=== PATIENT | male | born 1985 | race Asian ===

== ENCOUNTER → 2018-02-18 | Outpatient (CLI) | payer OTHER | LOC: CAT 08:25 | DX: Z13.6 Encounter for screening for cardiovascular disorders (principal); E78.00 Pure hypercholesterolemia, unspecified ==

== ENCOUNTER → 2018-12-22 | Outpatient (CLI) | payer BC, OTHER ==
[~2018-12-22] MED LIST: EC-NAPROSYN500 M1 PO; HIGH POTENCY42.5 GM TOP; ROBAXIN 750 MG750 MG PO
== END ==
LOC: ULTRA 08:24
DX: K76.0 Fatty (change of) liver, not elsewhere classified (principal); E78.5 Hyperlipidemia, unspecified

== ENCOUNTER 2018-12-23 17:55 | Emergency (ER) | payer BC, OTHER ==
[~2018-12-23] VITALS: Ht 180.3 cm; Wt 98.4 kg
[2018-12-23] MEDS ORDERED: HIGH POTENCY42.5 GM TOP (18:18)
[2018-12-23] MEDS ORDERED: ROBAXIN 750 MG750 MG PO (18:18)
[2018-12-23] MEDS ORDERED: EC-NAPROSYN500 M1 PO (18:18)
[2018-12-23 18:42] VITALS: BP 147/77
== END 2018-12-23 18:43 ==
LOC: ER 17:55
DX: S39.012A Strain of muscle, fascia and tendon of lower back, initial encounter (principal); S16.1XXA Strain of muscle, fascia and tendon at neck level, initial encounter; E78.00 Pure hypercholesterolemia, unspecified; V89.2XXA Person injured in unspecified motor-vehicle accident, traffic, initial encounter; Y92.89 Other specified places as the place of occurrence of the external cause; Y93.89 Activity, other specified; Y99.8 Other external cause status

== ENCOUNTER → 2018-12-31 | Outpatient (CLI) | payer BC, OTHER | LOC: RAD 09:55 | DX: M41.85 Other forms of scoliosis, thoracolumbar region (principal) ==

== ENCOUNTER → 2019-06-07 | Outpatient (CLI) | payer BC, OTHER ==
[~2019-06-07] MED LIST changes: +DORYX MPC120 MG PO; +MECLIZINE HCL25 M1 PO; +NABUMETONE 500500 M1 PO; +ROSUVASTATIN CA10 MG PO; +SKELAXIN 800 M800 M1 PO
== END ==
LOC: MRI 14:51
DX: M47.26 Other spondylosis with radiculopathy, lumbar region (principal); M51.16 Intervertebral disc disorders with radiculopathy, lumbar region; M48.061 Spinal stenosis, lumbar region without neurogenic claudication

== ENCOUNTER 2019-06-13 09:54 | Emergency (ER) | payer BC, OTHER ==
[~2019-06-13] VITALS: Ht 180.3 cm; Wt 97.5 kg
[~2019-06-13 09:54] MED LIST changes: -DORYX MPC120 MG PO; -MECLIZINE HCL25 M1 PO; -NABUMETONE 500500 M1 PO; -ROSUVASTATIN CA10 MG PO; -SKELAXIN 800 M800 M1 PO
[2019-06-13] MEDS ORDERED: NABUMETONE 500500 M1 PO (10:15)
[2019-06-13] MEDS ORDERED: ROSUVASTATIN CA10 MG PO (10:16)
[2019-06-13] MEDS ORDERED: SKELAXIN 800 M800 M1 PO (10:16)
[2019-06-13] MEDS ORDERED: DORYX MPC120 MG PO (10:16)
[2019-06-13] MEDS ORDERED: MECLIZINE HCL25 M1 PO (11:57)
[2019-06-13 12:49] VITALS: BP 118/76
== END 2019-06-13 12:50 | disposition home or self-care (01) ==
LOC: ER 09:54
DX: R42 Dizziness and giddiness (principal); R50.9 Fever, unspecified; R51 Headache; E78.00 Pure hypercholesterolemia, unspecified; Z79.899 Other long term (current) drug therapy; Z79.2 Long term (current) use of antibiotics

== ENCOUNTER → 2019-08-26 | Outpatient (CLI) | payer BC, OTHER ==
[~2019-08-26] VITALS: Ht 177.8 cm; Wt 90.7 kg
[~2019-08-26] MED LIST changes: +DORYX MPC120 MG PO; +MECLIZINE HCL25 M1 PO; +MEDROLDOSEPACK PO; +NABUMETONE 500500 M1 PO; +NAPROSYN500 M1 PO; +NEURONTIN300 MG PO; +ROSUVASTATIN CA10 MG PO; +SKELAXIN 800 M800 M1 PO
[2019-08-26 12:34] VITALS: BP 119/68
--- NOTE | 2019-08-26 12:49 | NUR ---
Pain Clinic Assessment: 1. History of Osteoarthritis: SPINAL History of Rheumatoid Arthritis: Not Applicable 2. Height: 5 ft. 10 in. 177.8 cm. Weight: 200.0 lb. oz. 90.720 kg. Patient's BMI: 28.7 3. Vital Signs: BP: 119/68 Pulse: 74 Resp: 16 Temp: 02 Sat: 100 ECG Mon: 4. Pain Intensity: 8 5. Fall Risk: Dizziness: Y Needs help standing or walking: N Fallen in the last 3 months: N Fall risk comments: 6. Patient on Blood Thinner: 7. History of Hypertension: N 8. Opioid Therapy greater than 6 weeks: N Opiate Contract Signed: 9. Risk Assessment Tool Provided: 10. Functional Assessment Tool: 11. Recreational Drug Use: Never Drug Type: Tobacco Use: Never Smoker Tobacco Type: Amount or Packs/day: How Many Years: Alcohol Use: No Frequency: Quant:
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
== END ==
LOC: PAIN 07:00
DX: M47.816 Spondylosis without myelopathy or radiculopathy, lumbar region (principal); M48.061 Spinal stenosis, lumbar region without neurogenic claudication; M06.9 Rheumatoid arthritis, unspecified; I10 Essential (primary) hypertension; F11.90 Opioid use, unspecified, uncomplicated

== ENCOUNTER → 2019-09-07 | Outpatient (CLI) | payer BC, OTHER ==
[~2019-09-07] VITALS: Ht 177.8 cm; Wt 93.0 kg
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
[2019-09-07 09:25] VITALS: BP 116/70
--- NOTE | 2019-09-07 09:38 | NUR ---
Pain Clinic Assessment: 1. History of Osteoarthritis: SPINAL History of Rheumatoid Arthritis: Not Applicable 2. Height: 5 ft. 10 in. 177.8 cm. Weight: 205.0 lb. oz. 92.988 kg. Patient's BMI: 29.4 3. Vital Signs: BP: 116/70 Pulse: 70 Resp: 14 Temp: 02 Sat: 100 ECG Mon: 4. Pain Intensity: 8 5. Fall Risk: Dizziness: N Needs help standing or walking: N Fallen in the last 3 months: N Fall risk comments: 6. Patient on Blood Thinner: None 7. History of Hypertension: N 8. Opioid Therapy greater than 6 weeks: N Opiate Contract Signed: 9. Risk Assessment Tool Provided: 10. Functional Assessment Tool: 11. Recreational Drug Use: Never Drug Type: Tobacco Use: Never Smoker Tobacco Type: Amount or Packs/day: How Many Years: Alcohol Use: No Frequency: Quant:
== END | disposition home or self-care (01) ==
LOC: PAIN 06:46
DX: M54.5 Low back pain (principal); M48.061 Spinal stenosis, lumbar region without neurogenic claudication; G89.29 Other chronic pain; E78.00 Pure hypercholesterolemia, unspecified; Z79.899 Other long term (current) drug therapy

== ENCOUNTER → 2019-10-28 | Outpatient (CLI) | payer BC, OTHER ==
[~2019-10-28] VITALS: Ht 177.8 cm; Wt 90.3 kg
--- NOTE | 2019-10-28 10:03 | NUR ---
Pain Clinic Assessment: 1. History of Osteoarthritis: SPINAL History of Rheumatoid Arthritis: Not Applicable 2. Height: ft. in. cm. Weight: lb. oz. kg. Patient's BMI: 3. Vital Signs: BP: Pulse: Resp: Temp: 02 Sat: ECG Mon: 4. Pain Intensity: 8 5. Fall Risk: Dizziness: Needs help standing or walking: Fallen in the last 3 months: Fall risk comments: 6. Patient on Blood Thinner: None 7. History of Hypertension: N 8. Opioid Therapy greater than 6 weeks: N Opiate Contract Signed: 9. Risk Assessment Tool Provided: 10. Functional Assessment Tool: 39 11. Recreational Drug Use: Never Drug Type: Tobacco Use: Never Smoker Tobacco Type: Amount or Packs/day: How Many Years: Alcohol Use: No Frequency: Quant:
[2019-10-28 12:37] VITALS: BP 117/73
--- NOTE | 2019-10-28 12:57 | NUR ---
Pain Clinic Assessment: 1. History of Osteoarthritis: SPINAL History of Rheumatoid Arthritis: Not Applicable 2. Height: 5 ft. 10 in. 177.8 cm. Weight: 199.0 lb. oz. 90.266 kg. Patient's BMI: 28.6 3. Vital Signs: BP: 117/73 Pulse: 59 Resp: 13 Temp: 02 Sat: 100 ECG Mon: 4. Pain Intensity: 5-6 5. Fall Risk: Dizziness: N Needs help standing or walking: N Fallen in the last 3 months: N Fall risk comments: 6. Patient on Blood Thinner: None 7. History of Hypertension: N 8. Opioid Therapy greater than 6 weeks: N Opiate Contract Signed: 9. Risk Assessment Tool Provided: 2-LOW RISK 10. Functional Assessment Tool: 11. Recreational Drug Use: Never Drug Type: Tobacco Use: Never Smoker Tobacco Type: Amount or Packs/day: How Many Years: Alcohol Use: No Frequency: Quant:
== END | disposition home or self-care (01) ==
LOC: PAIN 06:52
PROVIDERS: ATTEND Anesthesiology Pain Medicine
DX: M54.16 Radiculopathy, lumbar region (principal); G89.29 Other chronic pain; Z98.890 Other specified postprocedural states; Z79.899 Other long term (current) drug therapy